=== PATIENT | female | born 1970 | race Caucasian/White ===

== ENCOUNTER 2016-06-04 21:42 | Emergency (ER) | payer BC, OTHER ==
[2016-06-04] MEDS ORDERED: Sodium Chloride 0.9% 1000 ML 1,000 ML IV STA (22:00)
[2016-06-04] MEDS ORDERED: Reglan 10 MG/2 ML IV ONE (22:00)
[2016-06-04] MEDS ORDERED: SUBLIMAZE 100 MCG/2 ML IV ONE (22:02)
[2016-06-04] MEDS ORDERED: SUBLIMAZE 100 MCG/2 ML ONE (22:06)
[2016-06-04] MEDS ORDERED: Sodium Chloride 0.9% 1000 ML 1,000 ML ONE (22:06)
[2016-06-04] MEDS ORDERED: Reglan 10 MG/2 ML ONE (22:06)
[2016-06-04 22:10] LABS: BASOPHIL % 0.1 % (0.0-0.4); Eosinophil % 0.7 % (0.00-5.0); Granulocytes % 65.3 % (36.0-66.0); Lymphocytes % 24.8 % (24.0-44.0); Mean Platelet Volume 9.5 fl (6-9.5); Monocytes % 9.1 % (0.0-12.0); Platelet Count 185 K/mm3 (150-450); Red Blood Count 4.02 M/mm3 (4.1-5.4); Red Cell Distribution Width 13.1 % (11.5-14.0); White Blood Count 6.9 K/mm3 (4.0-10.5)
[2016-06-04 22:11] LABS: Mean Corpuscular Hemoglobin 32.5 pg (26-32)
--- NOTE | 2016-06-04 22:15 | ERPHSYRPT ---
- History of Present Illness Time Seen by Provider: 06/04/16 22:05 Historian: patient, family Exam Limitations: no limitations Patient Subjective Stated Complaint: patient having severe pain in abdomen and side shooting into her back , krissy ciolored stools history of pancreatitis Triage Nursing Assessment: pt alert and oriented x3, pulses equal bialteral radius, stomach tender to palpation bowel sounds x4, rigid. clenching in pain. Physician History: patient having severe pain in abdomen and side shooting into her back , krissy ciolored stools history of pancreatitis, pain started 1.5 hours ago after eating at [employer] restaurant., c/o periumbilical area pain Timing/Duration: today Activities at Onset: none Quality: cramping Abdominal Pain Onset Location: periumbilical Pain Radiation: back Severity of Pain-Max: moderate Severity of Pain-Current: moderate Modifying Factors: Improves With: nothing Associated Symptoms: nausea Allergies/Adverse Reactions: amoxicillin [From Augmentin] Allergy (Verified 06/04/16 21:52) clavulanic acid [From Augmentin] Allergy (Verified 06/04/16 21:52) hydromorphone [From Dilaudid] Allergy (Verified 06/04/16 21:52) moxifloxacin [From Avelox] Allergy (Verified 06/04/16 21:52) prochlorperazine [From Compazine] Allergy (Verified 06/04/16 21:52) Quinolones Adverse Reaction (Verified 06/04/16 21:52) Hx Tetanus, Diphtheria Vaccination/Date Given: Yes Hx Influenza Vaccination/Date Given: Yes Hx Pneumococcal Vaccination/Date Given: No Immunizations Up to Date: Yes - Review of Systems Constitutional: No Symptoms Eyes: No Symptoms Ears, Nose, & Throat: No Symptoms Respiratory: No Symptoms Cardiac: No Symptoms Abdominal/Gastrointestinal: Abdominal Pain, Nausea Genitourinary Symptoms: No Symptoms Musculoskeletal: No Symptoms Skin: No Symptoms - Past Medical History Pertinent Past Medical History: Yes Cardiac History: Other GI Medical History: Pancreatitis History: Other Other Medical History: PFO, and kidney stones - Past Surgical History Past Surgical History: Yes Gastrointestinal: Appendectomy, Cholecystectomy Female Surgical History: Tubal Ligation - Social History Smoking Status: Never smoker Drug Use: none - Nursing Vital Signs Nursing Vital Signs: Initial Vital Signs Temperature 97.5 F Temperature Source Oral Pulse Rate 58 Respiratory Rate 16 Blood Pressure [Right Arm] 113/78 Pain Intensity 10 - Physical Exam General Appearance: no apparent distress, alert Eye Exam: PERRL/EOMI, eyes nml inspection Ears, Nose, Throat Exam: normal ENT inspection, pharynx normal, moist mucous membranes Neck Exam: normal inspection, non-tender, supple, full range of motion Respiratory Exam: normal breath sounds, lungs clear, No respiratory distress Cardiovascular Exam: regular rate/rhythm, normal heart sounds Gastrointestinal/Abdomen Exam: soft, tenderness (periumbilical area tenderness) , No mass Pelvic Exam: not done Back Exam: normal inspection, normal range of motion, No CVA tenderness, No vertebral tenderness Extremity Exam: normal inspection, normal range of motion, pelvis stable Neurologic Exam: alert, oriented x 3, cooperative, normal mood/affect, nml cerebellar function, sensation nml, No motor deficits Skin Exam: normal color, warm, dry SpO2: 99 Oxygen Delivery: Room Air Ordered Tests: Active Orders 24 hr Category Date Time Status ABDOMEN AND PELVIS W/0 CONTRAS [CT] Stat Exams 06/04/16 22:01 Ordered AMYLASE Stat Lab 06/04/16 22:07 Completed CBC W DIFF Stat Lab 06/04/16 22:07 Completed CMP Stat Lab 06/04/16 22:07 Completed HCG QUALITATIVE,SERUM Stat Lab 06/04/16 22:15 Completed LIPASE Stat Lab 06/04/16 22:07 Completed Lactic Acid Urgent Lab 06/04/16 22:15 Completed UA W/ MICROSCOPIC Stat Lab 06/04/16 22:07 Completed Medication Summary Discontinued Medications Generic Name Dose Route Start Last Admin Trade Name Man PRN Reason Stop Dose Admin Fentanyl Citrate 50 mcg 06/04/16 22:02 06/04/16 22:08 Sublimaze 100 Mcg/2 Ml IV 06/04/16 22:03 50 mcg STAT ONE Administration Fentanyl Citrate Confirm 06/04/16 22:06 Sublimaze 100 Mcg/2 Ml Administered 06/04/16 22:07 Dose 100 mcg .ROUTE .STK-MED ONE Sodium Chloride 1,000 mls @ 999 mls/hr 06/04/16 22:00 06/04/16 22:09 Sodium Chloride 0.9% 1000 Ml IV 06/04/16 23:00 999 mls/hr .Q1H1M STA Administration Sodium Chloride Confirm 06/04/16 22:06 Sodium Chloride 0.9% 1000 Ml Administered 06/04/16 22:07 Dose 1,000 mls @ ud .ROUTE .STK-MED ONE Metoclopramide HCl 10 mg 06/04/16 22:00 06/04/16 22:08 Reglan 10 Mg/2 Ml IV 06/04/16 22:01 10 mg STAT ONE Administration Metoclopramide HCl Confirm 06/04/16 22:06 Reglan 10 Mg/2 Ml Administered 06/04/16 22:07 Dose 10 mg .ROUTE .STK-MED ONE Lab/Rad Data: Laboratory Result Diagrams 06/04/16 22:07 06/04/16 22:07 Laboratory Results 06/04/16 06/04/16 06/04/16 Range/Units 22:15 22:15 22:07 WBC (4.0-10.5) K/mm3 RBC (4.1-5.4) M/mm3 Hgb (12.0-16.0) gm/dl Hct (35-47) % MCV (78-100) fl MCH (26-32) pg MCHC (32-36) g/dl RDW (11.5-14.0) % Plt Count (150-450) K/mm3 MPV (6-9.5) fl Gran % (36.0-66.0) % Lymphocytes % (24.0-44.0) % Monocytes % (0.0-12.0) % Eosinophils % (0.00-5.0) % Basophils % (0.0-0.4) % Basophils # (0-0.4) Sodium (136-145) mEq/L Potassium (3.5-5.1) mEq/L Chloride (98-107) mEq/L Carbon Dioxide (21-32) mEq/L Anion Gap (5-15) MEQ/L BUN (9-20) mg/dL Creatinine (0.55-1.30) mg/dl Estimated GFR ML/MIN Glucose (70-110) MG/DL Lactic Acid 0.9 (0.4-2.0) Calcium (8.5-10.1) mg/dL Total Bilirubin (0.2-1.0) mg/dL AST (15-37) U/L ALT (12-78) U/L Alkaline Phosphatase (46-116) U/L Serum Total Protein (6.4-8.2) gm/dL Albumin (3.4-5.0) g/dL Amylase (25-115) U/L Lipase (73-393) U/L Serum , Qual NEGATIVE (Negative) Ur Collection Type CLEAN CATCH Urine Color YELLOW (YELLOW) Urine Appearance CLEAR (CLEAR) Urine pH 7.0 (5-6) Ur Specific Dixon 1.020 (1.005-1.025) Urine Protein TRACE (Negative) Urine Glucose (UA) NEGATIVE (NEGATIVE) mg/dL Urine Ketones TRACE (NEGATIVE) Urine Nitrite NEGATIVE (NEGATIVE) Urine Bilirubin NEGATIVE (NEGATIVE) Urine Urobilinogen NORMAL (0-1) mg/dL Urine WBC (Auto) NEGATIVE (NEGATIVE) Urine RBC (Auto) NEGATIVE (0-5) Angel/ul Urine Microscopic WBC 0-2 (0-5) /HPF Ur Epithelial Cells FEW (FEW) /HPF Urine Bacteria RARE (NEGATIVE) /HPF Specimen Received [id number] 06/04/16 06/04/16 Range/Units 22:07 22:07 WBC 6.9 (4.0-10.5) K/mm3 RBC 4.02 L (4.1-5.4) M/mm3 Hgb 13.1 (12.0-16.0) gm/dl Hct 39.4 (35-47) % MCV 98.0 (78-100) fl MCH 32.5 H (26-32) pg MCHC 33.2 (32-36) g/dl RDW 13.1 (11.5-14.0) % Plt Count 185 (150-450) K/mm3 MPV 9.5 (6-9.5) fl Gran % 65.3 (36.0-66.0) % Lymphocytes % 24.8 (24.0-44.0) % Monocytes % 9.1 (0.0-12.0) % Eosinophils % 0.7 (0.00-5.0) % Basophils % 0.1 (0.0-0.4) % Basophils # 0.01 (0-0.4) Sodium 143 (136-145) mEq/L Potassium 3.8 (3.5-5.1) mEq/L Chloride 106 (98-107) mEq/L Carbon Dioxide 29.7 (21-32) mEq/L Anion Gap 10.8 (5-15) MEQ/L BUN 16 (9-20) mg/dL Creatinine 0.88 (0.55-1.30) mg/dl Estimated GFR > 60 ML/MIN Glucose 133 H (70-110) MG/DL Lactic Acid (0.4-2.0) Calcium 8.6 (8.5-10.1) mg/dL Total Bilirubin 0.3 (0.2-1.0) mg/dL AST 34 (15-37) U/L ALT 36 (12-78) U/L Alkaline Phosphatase 50 (46-116) U/L Serum Total Protein 7.3 (6.4-8.2) gm/dL Albumin 4.0 (3.4-5.0) g/dL Amylase 73 (25-115) U/L Lipase 381 (73-393) U/L Serum , Qual (Negative) Ur Collection Type Urine Color (YELLOW) Urine Appearance (CLEAR) Urine pH (5-6) Ur Specific Dixon (1.005-1.025) Urine Protein (Negative) Urine Glucose (UA) (NEGATIVE) mg/dL Urine Ketones (NEGATIVE) Urine Nitrite (NEGATIVE) Urine Bilirubin (NEGATIVE) Urine Urobilinogen (0-1) mg/dL Urine WBC (Auto) (NEGATIVE) Urine RBC (Auto) (0-5) Angel/ul Urine Microscopic WBC (0-5) /HPF Ur Epithelial Cells (FEW) /HPF Urine Bacteria (NEGATIVE) /HPF Specimen Received - Progress Progress: improved Progress Note: 06/04/16 23:04 Patient is feeling much better. Abdominal pain is completely gone. Patient's all laboratory data is within normal range. Patient's CT of the abdomen and pelvis is canceled. It appears that patient ate something unusual and which has caused these symptoms. Counseled pt/family regarding: lab results, diagnosis, need for follow-up - Departure Time of Disposition: 23:05 Departure Disposition: Home Clinical Impression: Abdominal pain in female Condition: Stable Critical Care Time: No Instructions: Abdominal Pain-Adult Additional Instructions: ABDOMINAL PAIN 1. There are several different causes for abdominal pain, some of which may not be able to be identified on initial examination. 2. The important thing to remember is that bodily functions can change in a short period of time. If you notice any of the following symptoms, return to the emergency department or consult your doctor immediately: A. Worsening pain or no improvement in the next 12 hours. B. Increasing, severe abdominal pain C. Blood in stool D. Black stools E. Persistent vomiting F. Fever or chills or other symptoms Please follow the instructions given to you. Please take your medication as prescribed if given. If symptoms recur or get worse, come back to the emergency room if you cannot reach your primary care physician, or call your primary care physician for an appointment. Again if your symptoms get worse, come back to the emergency room. Thanks for visiting emergency room, and let us take care of you.
[2016-06-04 22:26] LABS: Collection Type CLEAN CATCH
[2016-06-04 22:27] LABS: Bacteria RARE /HPF (NEGATIVE); COMPLETE URINE MICROSCOPIC? YES; Epithelial Cells FEW /HPF (FEW); WBC 0-2 /HPF (0-5)
[2016-06-04 22:35] LABS: ALKALINE PHOSPHATASE 50 U/L (46-116); ANION GAP 10.8 MEQ/L (5-15); BILIRUBIN,TOTAL 0.3 mg/dL (0.2-1.0); BLOOD UREA NITROGEN 16 mg/dL (9-20); CHLORIDE 106 mEq/L (98-107); Carbon Dioxide 29.7 mEq/L (21-32); Glucose 133 MG/DL (70-110); LIPASE 381 U/L (73-393); Potassium 3.8 mEq/L (3.5-5.1); SGOT/AST 34 U/L (15-37); SGPT/ALT 36 U/L (12-78); SODIUM 143 mEq/L (136-145); Total Protein 7.3 gm/dL (6.4-8.2)
[2016-06-04 22:39] VITALS: PULSE 58
[2016-06-04 23:20] VITALS: BP 108/68; O2SAT 98
== END 2016-06-04 23:19 | disposition home or self-care (01) ==
LOC: ED 21:42
DX: R10.9 Unspecified abdominal pain (principal); R19.5 Other fecal abnormalities; K86.1 Other chronic pancreatitis; R11.0 Nausea
CPT/HCPCS: 36415; 80053; 81000; 82150; 83605; 83690; 84703; 85025; 96360; 96374; 96375; 99284; J3010

== ENCOUNTER 2019-09-14 22:59 | Emergency (ER) | payer BC, OTHER ==
[2019-09-14] MEDS ORDERED: Sodium Chloride 0.9% 1000 ML 1,000 ML IV STA (23:13)
[2019-09-14] MEDS ORDERED: ANTIVERT 25 MG PO ONE (23:13)
[2019-09-14] MEDS ORDERED: Zofran 4 MG/2 ML VIAL IV ONE (23:13)
[2019-09-14] MEDS ORDERED: Zofran 4 MG/2 ML VIAL ONE (23:23)
[2019-09-14] MEDS ORDERED: ANTIVERT 25 MG ONE (23:23)
[2019-09-14] MEDS ORDERED: Sodium Chloride 0.9% 1000 ML 1,000 ML ONE (23:23)
[2019-09-14 23:48] LABS: Absolute Neutrophil Ct (ANC) 2.87 (1.4-6.9); BASOPHIL % 0.4 % (0.0-0.4); Basophil (Absolute #) 0.02 (0-0.4); Eosinophil % 2.4 % (0.00-5.0); Eosinophil (Absolute #) 0.13 (0-0.5); Hematocrit 39.4 % (35-47); Hemoglobin 13.2 gm/dl (12.0-16.0); Lymphocyte (Absolute #) 1.87 (1.0-4.6); Lymphocytes % 34.5 % (24.0-44.0); Mean Cell Volume 95.9 fl (78-100); Mean Corpuscular Hemoglobin 32.1 pg (26-32); Mean Corpuscular Hgb Concent. 33.5 g/dl (32-36); Mean Platelet Volume 9.9 fl (7.5-11.0); Monocyte (Absolute #) 0.53 (0.0-1.3); Monocytes % 9.8 % (0.0-12.0); Neutrophil % 52.9 % (36.0-66.0); Platelet Count 205 K/mm3 (150-450); Red Blood Count 4.11 M/mm3 (4.1-5.4); Red Cell Distribution Width 12.7 % (11.5-14.0); White Blood Count 5.4 K/mm3 (4.0-10.5)
--- NOTE | 2019-09-14 23:50 | ERPHSYRPT ---
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, active bowel sounds in all quads, vitals wnl Physician History: pt states she had headache today after work, pt states an hour ago she began to be dizzy, pt states that she started vomiting prior to coming in, pt states that she was going to bed when the room began to spin Timing/Duration: today Severity: moderate Associated Symptoms: nausea, vomiting, headaches, No chest pain, No weakness Allergies/Adverse Reactions: amoxicillin [From Augmentin] Allergy (Verified 09/14/19 23:26) clavulanic acid [From Augmentin] Allergy (Verified 09/14/19 23:26) hydromorphone [From Dilaudid] Allergy (Verified 09/14/19 23:26) moxifloxacin [From Avelox] Allergy (Verified 09/14/19 23:26) prochlorperazine [From Compazine] Allergy (Verified 09/14/19 23:26) Quinolones Adverse Reaction (Verified 09/14/19 23:26) Home Medications: Metoprolol Succinate 25 mg PO DAILY 09/14/19 [History] Omeprazole 40 mg PO DAILY 09/14/19 [History] estradioL [Estradiol] 0.5 mg PO DAILY 09/14/19 [History] Hx Tetanus, Diphtheria Vaccination/Date Given: Yes Hx Influenza Vaccination/Date Given: Yes Hx Pneumococcal Vaccination/Date Given: No Travel Risk - International Travel Have you traveled outside of the country in past 3 weeks: No - Coronavirus Screening Are you exhibiting any of the following symptoms?: Yes Symptoms: Vomiting/Diarrhea Close contact with a COVID-19 positive Pt in past 14-21 Days: Yes - Review of Systems Constitutional: No Fever, No Chills Eyes: No Symptoms Ears, Nose, & Throat: No Symptoms Respiratory: No Cough, No Dyspnea Cardiac: No Chest Pain, No Edema, No Syncope Abdominal/Gastrointestinal: No Abdominal Pain, No Nausea, No Vomiting, No Diarrhea Genitourinary Symptoms: No Dysuria Musculoskeletal: No Back Pain, No Neck Pain Skin: No Rash Neurological: Headache, No Dizziness, No Focal Weakness, No Sensory Changes Psychological: No Symptoms Endocrine: No Symptoms All Other Systems: Reviewed and Negative - Past Medical History Pertinent Past Medical History: Yes Cardiac History: Other GI Medical History: Pancreatitis History: Other Other Medical History: PFO, and kidney stones, vertigo, mitral valve prolaspe - Past Surgical History Past Surgical History: Yes Gastrointestinal: Appendectomy, Cholecystectomy Female Surgical History: Hysterectomy, Tubal Ligation - Social History Smoking Status: Never smoker Exposure to second hand smoke: No Drug Use: none Patient Lives Alone: No - Female History Hx Now: No - Nursing Vital Signs Nursing Vital Signs: Initial Vital Signs Temperature 97.7 F 09/14/19 23:08 Pulse Rate 51 L 09/14/19 23:08 Respiratory Rate 16 09/14/19 23:08 Blood Pressure 140/86 09/14/19 23:08 O2 Sat by Pulse Oximetry 100 09/14/19 23:08 Pain Scale Pain Intensity 3 - Physical Exam General Appearance: no apparent distress, alert Eye Exam: PERRL/EOMI, eyes nml inspection Ears, Nose, Throat Exam: normal ENT inspection, TMs normal, pharynx normal, moist mucous membranes Neck Exam: normal inspection, non-tender, supple, full range of motion Respiratory Exam: normal breath sounds, lungs clear, No respiratory distress Cardiovascular Exam: regular rate/rhythm, normal heart sounds, normal peripheral pulses Gastrointestinal/Abdomen Exam: soft, normal bowel sounds, No tenderness, No mass Back Exam: normal inspection, normal range of motion, No CVA tenderness, No vertebral tenderness Extremity Exam: normal inspection, normal range of motion, pelvis stable Neurologic Exam: alert, oriented x 3, cooperative, normal mood/affect, nml cerebellar function, nml station & gait, sensation nml, No motor deficits Skin Exam: normal color, warm, dry, No rash Lymphatic Exam: No adenopathy SpO2: 100 - Course Nursing assessment & vital signs reviewed: Yes Ordered Tests: Active Orders 24 hr Category Date Time Status EKG-ER Only STAT Care 09/14/19 23:13 Active CBC W DIFF Stat Lab 09/14/19 23:30 Completed CMP Stat Lab 09/14/19 23:30 Completed Medication Summary Discontinued Medications Generic Name Dose Route Start Last Admin Trade Name Man PRN Reason Stop Dose Admin Diazepam 2.5 mg 09/14/19 23:53 09/14/19 23:57 Valium 10 Mg/2 Ml Syringe IV 09/14/19 23:54 2.5 mg STAT ONE Administration Diazepam Confirm 09/14/19 23:56 Valium 10 Mg/2 Ml Syringe Administered 09/14/19 23:57 Dose 10 mg .ROUTE .STK-MED ONE Droperidol 1.25 mg 09/15/19 00:26 09/15/19 00:33 Inapsine 5 Mg/2 Ml IV 09/15/19 00:27 1.25 mg STAT ONE Administration Droperidol Confirm 09/15/19 00:30 Inapsine 5 Mg/2 Ml Administered 09/15/19 00:31 Dose 5 mg .ROUTE .STK-MED ONE Sodium Chloride 1,000 mls @ 999 mls/hr 09/14/19 23:13 09/15/19 00:31 Sodium Chloride 0.9% 1000 Ml IV 09/15/19 00:13 Infused .Q1H1M STA Infusion Sodium Chloride Confirm 09/14/19 23:23 Sodium Chloride 0.9% 1000 Ml Administered 09/14/19 23:24 Dose 1,000 mls @ ud .ROUTE .STK-MED ONE Sodium Chloride 1,000 mls @ 999 mls/hr 09/15/19 00:26 09/15/19 00:33 Sodium Chloride 0.9% 1000 Ml IV 09/15/19 01:26 999 mls/hr .Q1H1M STA Administration Sodium Chloride Confirm 09/15/19 00:30 Sodium Chloride 0.9% 1000 Ml Administered 09/15/19 00:31 Dose 1,000 mls @ ud .ROUTE .STK-MED ONE Meclizine HCl 25 mg 09/14/19 23:13 09/14/19 23:32 Antivert 25 Mg PO 09/14/19 23:14 25 mg STAT ONE Administration Meclizine HCl Confirm 09/14/19 23:23 Antivert 25 Mg Administered 09/14/19 23:24 Dose 25 mg .ROUTE .STK-MED ONE Ondansetron HCl 4 mg 09/14/19 23:13 09/14/19 23:31 Zofran 4 Mg/2 Ml Vial IV 09/14/19 23:14 4 mg STAT ONE Administration Ondansetron HCl Confirm 09/14/19 23:23 Zofran 4 Mg/2 Ml Vial Administered 09/14/19 23:24 Dose 4 mg .ROUTE .STK-MED ONE Ondansetron HCl 4 mg 09/15/19 00:26 09/15/19 00:33 Zofran 4 Mg/2 Ml Vial IV 09/15/19 00:27 4 mg STAT ONE Administration Ondansetron HCl Confirm 09/15/19 00:30 Zofran 4 Mg/2 Ml Vial Administered 09/15/19 00:31 Dose 4 mg .ROUTE .STK-MED ONE Lab/Rad Data: Laboratory Result Diagrams 09/14/19 23:30 09/14/19 23:30 Laboratory Results 09/14/19 09/14/19 Range/Units 23:30 23:30 WBC 5.4 (4.0-10.5) K/mm3 RBC 4.11 (4.1-5.4) M/mm3 Hgb 13.2 (12.0-16.0) gm/dl Hct 39.4 (35-47) % MCV 95.9 (78-100) fl MCH 32.1 H (26-32) pg MCHC 33.5 (32-36) g/dl RDW 12.7 (11.5-14.0) % Plt Count 205 (150-450) K/mm3 MPV 9.9 (7.5-11.0) fl Gran % 52.9 (36.0-66.0) % Eos # (Auto) 0.13 (0-0.5) Absolute Lymphs (auto) 1.87 (1.0-4.6) Absolute Monos (auto) 0.53 (0.0-1.3) Lymphocytes % 34.5 (24.0-44.0) % Monocytes % 9.8 (0.0-12.0) % Eosinophils % 2.4 (0.00-5.0) % Basophils % 0.4 (0.0-0.4) % Absolute Granulocytes 2.87 (1.4-6.9) Basophils # 0.02 (0-0.4) Sodium 140 (137-145) mmol/L Potassium 4.2 (3.5-5.1) mmol/L Chloride 105 (98-107) mmol/L Carbon Dioxide 29 (22-30) mmol/L Anion Gap 10.3 (5-15) MEQ/L BUN 27 H (7-17) mg/dL Creatinine 0.66 (0.52-1.04) mg/dL Estimated GFR > 60.0 ML/MIN Glucose 98 (74-106) mg/dL Calcium 9.8 (8.4-10.2) mg/dL Total Bilirubin 0.60 (0.2-1.3) mg/dL AST 38 H (14-36) U/L ALT 24 (0-35) U/L Alkaline Phosphatase 52 (38-126) U/L Serum Total Protein 7.9 (6.3-8.2) g/dL Albumin 4.6 (3.5-5.0) g/dL - Progress Progress: improved Counseled pt/family regarding: diagnosis, need for follow-up - Departure Departure Disposition: Home Clinical Impression: Vertigo Condition: Stable Critical Care Time: No Referrals: СЕРГЕЙ VALERA [Primary Care Provider] - Instructions: Vertigo (a Type of Dizziness) (DC) Additional Instructions: Discharge/Care Plan ROBERT JENNINGS was seen on 09/15/19 in the Emergency Room. The patient was counseled regarding Diagnosis,Lab results, Imaging studies, need for follow up and when to return to the Emergency Room. Prescriptions given: Discharge Note I have spoken with the patient and/or caregivers. I have explained the patient's condition, diagnosis and treatment plan based on the information available to me at this time. I have answered the patient's and/or caregiver's questions and addressed any concerns. The patient and/or caregivers have as good understanding of the patient's diagnosis, condition and treatment plan as can be expected at this point. The vital signs have been stable. The patient's condition is stable and appropriate for discharge from the emergency department. The patient will pursue further outpatient evaluation with the primary care physician or other designated or consulting physician as outlined in the discharge instructions. The patient and/or caregivers are agreeable to this plan of care and follow-up instructions have been explained in detail. The patient and/or caregivers have received these instruction. The patient/and or caregivers are aware that any significant change in condition or worsening of symptoms should prompt an immediate return to this or the closest emergency department or call 911. Prescriptions: Meclizine HCl 25 mg [Antivert 25 mg] 25 mg PO QID #30 tablet
[2019-09-14] MEDS ORDERED: VALIUM 10 MG/2 ML SYRINGE IV ONE (23:53)
[2019-09-14] MEDS ORDERED: VALIUM 10 MG/2 ML SYRINGE ONE (23:56)
[2019-09-14 23:59] LABS: ALBUMIN 4.6 g/dL (3.5-5.0); ALKALINE PHOSPHATASE 52 U/L (38-126); ANION GAP 10.3 MEQ/L (5-15); BLOOD UREA NITROGEN 27 mg/dL (7-17); CHLORIDE 105 mmol/L (98-107); Calcium 9.8 mg/dL (8.4-10.2); Carbon Dioxide 29 mmol/L (22-30); Creatinine 1 0.66 mg/dL (0.52-1.04); Glucose 98 mg/dL (74-106); Potassium 4.2 mmol/L (3.5-5.1); SGOT/AST 38 U/L (14-36); SGPT/ALT 24 U/L (0-35); SODIUM 140 mmol/L (137-145); Total Protein 7.9 g/dL (6.3-8.2)
[2019-09-15] MEDS ORDERED: Inapsine 5 MG/2 ML IV ONE (00:26)
[2019-09-15] MEDS ORDERED: Sodium Chloride 0.9% 1000 ML 1,000 ML IV STA (00:26)
[2019-09-15] MEDS ORDERED: Zofran 4 MG/2 ML VIAL IV ONE (00:26)
[2019-09-15] MEDS ORDERED: Sodium Chloride 0.9% 1000 ML 1,000 ML ONE (00:30)
[2019-09-15] MEDS ORDERED: Inapsine 5 MG/2 ML ONE (00:30)
[2019-09-15] MEDS ORDERED: Zofran 4 MG/2 ML VIAL ONE (00:30)
[2019-09-15 01:12] VITALS: BP 105/64; PULSE 76
[2019-09-15 01:29] VITALS: O2SAT 100
== END 2019-09-15 01:36 | disposition home or self-care (01) ==
LOC: ED 22:59
DX: R42 Dizziness and giddiness (principal); R51 Headache; R11.2 Nausea with vomiting, unspecified
CPT/HCPCS: 36415; 80053; 85025; 93005; 96360; 96361; 96374; 96375; 96376; 99284; J2405; J3360; A9270-GY